=== PATIENT | female | born 1990 | race American Indian/Alaskan Native ===

== ENCOUNTER 2020-06-08 17:05 | Outpatient (CLI) | payer SELFPAY ==
[2020-06-08 19:10] VITALS: BP 135/74
[2020-06-08] MEDS ORDERED: LACTATED RINGERS 1,000 ML IV ONE (19:51)
[2020-06-08 19:53] LABS: Bilirubin,Urine NEG (Negative); Blood,Urine NEG (Negative); Color,Urine Amber (Yellow); Mucus,Urine 3+ /HPF; Protein,Urine <15 mg/dL mg/dL (Negative)
== END 2020-06-08 22:10 | disposition home or self-care (01) ==
LOC: APU 17:05 → TRG 17:05
PROVIDERS: ATTEND Obstetrics & Gynecology
DX: O99.89 Other specified diseases and conditions complicating pregnancy, childbirth and the puerperium (principal); N89.8 Other specified noninflammatory disorders of vagina; O26.892 Other specified pregnancy related conditions, second trimester; R25.2 Cramp and spasm; O47.02 False labor before 37 completed weeks of gestation, second trimester; O99.512 Diseases of the respiratory system complicating pregnancy, second trimester; J45.909 Unspecified asthma, uncomplicated; Z3A.26 26 weeks gestation of pregnancy; Z90.49 Acquired absence of other specified parts of digestive tract
CPT/HCPCS: 59025; 81001; 96360; J7120

== ENCOUNTER 2020-08-11 12:58 | Outpatient (CLI) | payer OTHER ==
[2020-08-11] MEDS: BETAMET ACET/BETAMET NA PH 6 MG/ML INJ 5 ML MDV IM SCH (14:12)
[2020-08-11] MEDS ORDERED: LACTATED RINGERS 1,000 ML IV SCH (15:00)
[2020-08-12] MEDS: BETAMET ACET/BETAMET NA PH 6 MG/ML INJ 5 ML MDV IM SCH (14:47)
[2020-08-12 14:48] VITALS: BP 132/68
== END 2020-08-11 15:45 | disposition home or self-care (01) ==
LOC: TRG 12:58 → APU 12:59 → TRG 15:45
PROVIDERS: ATTEND Obstetrics & Gynecology
DX: O26.613 Liver and biliary tract disorders in pregnancy, third trimester (principal); K83.1 Obstruction of bile duct; Z3A.35 35 weeks gestation of pregnancy; Z90.49 Acquired absence of other specified parts of digestive tract
CPT/HCPCS: 59025; 96372; J0702